=== PATIENT | female | born 1955 ===

== ENCOUNTER 2018-12-25 08:47 | Outpatient (CLI) | payer OTHER ==
[~2018-12-25 08:47] MED LIST: IBUPROFEN800 MG PO; LEVSIN0.125 MG PO; ZOFRAN4 MG PO
== END 2018-12-25 08:49 | disposition home or self-care (01) ==
LOC: TOM 08:47
DX: D17.1 Benign lipomatous neoplasm of skin and subcutaneous tissue of trunk (principal); M49.82 Spondylopathy in diseases classified elsewhere, cervical region

== ENCOUNTER 2019-01-22 05:30 | Day surgery (SDC) | payer OTHER ==
[~2019-01-22 05:30] MED LIST changes: +ATORVASTATIN PO; +FENOFIBRATE PO; +METFOR PO; +NORVASC PO
[2019-01-22] MEDS ORDERED: ULTRACET PO (08:24)
[2019-01-22] MEDS ORDERED: DICLOFENAC SODI75 MG PO (08:25)
== END 2019-01-22 10:50 | disposition home or self-care (01) ==
LOC: CIR.AMB 05:30
DX: D17.1 Benign lipomatous neoplasm of skin and subcutaneous tissue of trunk (principal)

== ENCOUNTER 2019-08-10 07:18 | Outpatient (CLI) | payer OTHER ==
[~2019-08-10 07:18] MED LIST changes: +DICLOFENAC SODI75 MG PO; +ULTRACET PO
== END 2019-08-10 07:28 | disposition home or self-care (01) ==
LOC: MRI 07:18
DX: M23.42 Loose body in knee, left knee (principal)
CPT/HCPCS: 73721

== ENCOUNTER → 2021-01-01 | Outpatient (CLI) | payer OTHER | END | disposition home or self-care (01) | LOC: PPH VACUNA 08:30 | PROVIDERS: ATTEND Emergency Medicine Pediatric Emergency Medicine | DX: Z23 Encounter for immunization (principal) ==

== ENCOUNTER 2021-05-18 07:00 | Day surgery (SDC) | payer OTHER | END 2021-05-18 14:40 | disposition home or self-care (01) | LOC: AMB-ENDOS 07:00 | PROVIDERS: ATTEND Surgery | DX: R19.4 Change in bowel habit (principal); R14.0 Abdominal distension (gaseous) ==

== ENCOUNTER 2021-11-23 09:05 | Emergency (ER) | payer OTHER ==
[~2021-11-23] VITALS: Ht 160 cm; Wt 72.6 kg
== END 2021-11-23 13:24 | disposition home or self-care (01) ==
LOC: ER 09:05
DX: R42 Dizziness and giddiness (principal); E11.9 Type 2 diabetes mellitus without complications; Z79.84 Long term (current) use of oral hypoglycemic drugs; I10 Essential (primary) hypertension

== ENCOUNTER 2021-12-03 09:01 | Outpatient (CLI) | payer OTHER | END 2021-12-03 09:14 | disposition home or self-care (01) | LOC: RAD 09:01 | PROVIDERS: ATTEND Family Medicine | DX: Z12.31 Encounter for screening mammogram for malignant neoplasm of breast (principal); R42 Dizziness and giddiness; N60.29 Fibroadenosis of unspecified breast ==